=== PATIENT | male | born 1945 | race Caucasian/White ===

== ENCOUNTER 2016-07-13 14:32 | Inpatient (IN) | payer OTHER, BC ==
--- NOTE | 2016-07-13 14:45 | CPEKG ---
Heart Rate: 66 RR Interval: 909 P-R Interval: 176 QRSD Interval: 104 QT Interval: 400 QTC Interval: 420 P [place]: 52 QRS [place]: -34 T Wave [place]: 93 EKG Severity - ABNORMAL ECG - EKG Impression: SINUS RHYTHM EKG Impression: PROBABLE LEFT ATRIAL ABNORMALITY EKG Impression: LEFT AXIS DEVIATION EKG Impression: NONSPECIFIC T ABNORMALITIES, LATERAL LEADS Electronically Signed By: Mary Geller 13-Jul-2016 20:29:23
--- NOTE | 2016-07-13 15:12 | EDPHY ---
H & P Time Seen by Provider: 07/13/16 14:47 HPI/ROS: CHIEF COMPLAINT: chest pain HISTORY OF PRESENT ILLNESS: Patient is a 70-year-old male with a history of coronary artery disease, status post CABG and stent placement who presents to the emergency department with substernal chest pain. He states his pain has been off and on for the past few days. It has increased in intensity and frequency. He was sitting down when he developed chest pain today. He took an aspirin and nitroglycerin. This resolved his pain. He was told by Dr. Marcos that if his nitroglycerin results his pain he should come to the emergency department. He is chest pain-free at this time. REVIEW OF SYSTEMS: My complete review of systems is negative except as mentioned in the HPI. Past Medical/Surgical History: Includes coronary artery disease, CHF, gout, diabetes, RLS, kidney failure Past surgical history: Includes AICD placement, CABG, bilateral hip replacement bilateral knee replacement Social history: The patient does not smoke. He is here with . Smoking Status: Former smoker Physical Exam: Vitals noted GENERAL: Well-appearing, in no acute distress, alert. HEENT: Eyes normal to inspection, normal pharynx, no signs of dehydration. NECK: No thyromegaly, no lymphadenopathy, supple. RESPIRATORY: Clear to auscultation bilaterally, no rales, rhonchi or wheezing. CVS: Regular rate and rhythm, no rubs, murmurs, or gallops. ABDOMEN: Soft, nontender, nondistended, no organomegaly. BACK: Normal to inspection, no CVA tenderness. SKIN: Normal color, no rash, warm, dry. No pallor. EXTREMITIES: No pedal edema, no calf tenderness, no Homans sign or cords, no joint swelling. NEURO/PSYCH: Alert and oriented x3, normal mood and affect, normal motor sensory exam. Constitutional: Initial Vital Signs Temperature (C) 36.8 C 07/13/16 14:36 Heart Rate 73 07/13/16 14:36 Respiratory Rate 18 07/13/16 14:36 Blood Pressure 174/68 H 07/13/16 14:36 O2 Sat (%) 94 07/13/16 14:36 O2 Delivery Mode Room Air Allergies/Adverse Reactions: hydrocodone Allergy (Verified 07/13/16 14:35) Home Medications: Medication Instructions Recorded Valsartan [Diovan] 320 mg PO DAILY 03/23/13 glyBURIDE [Micronase] 2.5 mg PO DAILY 03/23/13 Aspirin EC [Aspirin EC 81 mg (*)] 81 mg PO DAILY 04/30/13 Colchicine [Colchicine (*)] 0.6 mg PO DAILY PRN 01/06/14 Multivitamins [Multivitamin (*)] 1 each PO DAILY 01/06/14 Vesta-3 Fatty Acids [Fish Oil 1000 1,000 mg PO DAILY 01/06/14 mg (*)] rOPINIRole HCL [Requip 1mg (*)] 3 mg PO QID PRN 01/06/14 Furosemide [Lasix 40 MG (*)] 40 mg PO DAILY #0 tab 02/16/14 Atorvastatin Calcium [Lipitor 20 20 mg PO HS 04/03/15 mg (*)] Omeprazole [Prilosec 20 mg] 40 mg PO DAILY 04/03/15 Tadalafil [Cialis] 10 mg PO DAILY PRN 04/03/15 metFORMIN HCL [Glucophage 500 mg 1,000 mg PO BIDMEAL 04/03/15 (*)] Carvedilol [Coreg (*)] 3.125 mg PO BIDMEAL #0 tab 04/04/15 Cholecalciferol (Vitamin D3) 2,000 unit PO DAILY 05/09/15 [Vitamin D3] Doxycycline Hyclate 100 mg PO DAILY 05/09/15 LORazepam [Ativan (*)] 0.5 mg PO DAILY PRN 05/09/15 Aspirin [Aspirin 325 mg (*)] 325 mg PO DAILY #0 tab 03/18/16 Medical Decision Making ED Course/Re-evaluation: In the emergency department I discussed possible etiologies with the patient. I answered all his questions. IV was placed. Laboratory studies and chest x- ray were ordered. EKG shows normal sinus rhythm, normal rate, left axis deviation, normal intervals. There are no ST or T-wave abnormalities. 1545: The patient has no complaints. No chest pain or shortness of breath. I discussed his laboratory results thus far. Troponin is still pending. The D- dimer is elevated at 0.77. The patient consented to CT angiogram. I rechecked the patient. No chest pain. 1635: I discussed the CT results with Dr. Antionette Mehta. No pulmonary embolus. Mild CHF. No pneumonia. Please refer the dictated report. I discussed case with the hospitalist service (Dr. Gaines). The patient will be admitted for further evaluation for his chest pain. I discussed the plan with the patient and answered all his questions. Differential Diagnosis: My differential includes but is not limited to ACS, acute NM, pneumonia, PE, dissection, aneurysm - Data Points Laboratory Results: Laboratory Results 07/13/16 14:45 07/13/16 14:45 07/13/16 14:45 WBC 7.98 10^3/uL (3.80-9.50) RBC 5.49 10^6/uL (4.40-6.38) Hgb 15.9 g/dL (13.7-17.5) Hct 48.6 % (40.0-51.0) MCV 88.5 fL (81.5-99.8) MCH 29.0 pg (27.9-34.1) MCHC 32.7 g/dL (32.4-36.7) RDW 14.9 % (11.5-15.2) Plt Count 205 10^3/uL (150-400) MPV 10.1 fL (8.7-11.7) Neut % (Auto) 68.9 % (39.3-74.2) Lymph % (Auto) 23.6 % (15.0-45.0) [place] % (Auto) 5.4 % (4.5-13.0) Eos % (Auto) 1.1 % (0.6-7.6) Baso % (Auto) 0.4 % (0.3-1.7) Nucleat RBC Rel Count 0.0 % (0.0-0.2) Absolute Neuts (auto) 5.50 10^3/uL (1.70-6.50) Absolute Lymphs (auto) 1.88 10^3/uL (1.00-3.00) Absolute Monos (auto) 0.43 10^3/uL (0.30-0.80) Absolute Eos (auto) 0.09 10^3/uL (0.03-0.40) Absolute Basos (auto) 0.03 10^3/uL (0.02-0.10) Absolute Nucleated RBC 0.00 10^3/uL (0-0.01) Immature Gran % 0.6 % (0.0-1.1) Immature Gran # 0.05 10^3/uL (0.00-0.10) D-Dimer 0.77 H ug/mLFEU (0.00-0.50) Sodium 144 mEq/L (134-144) Potassium 4.8 mEq/L (3.5-5.2) Chloride 106 mEq/L (97-110) Carbon Dioxide 27 mEq/l (22-31) Anion Gap 11 mEq/L (8-16) BUN 27 H mg/dL (7-23) Creatinine 1.3 mg/dL (0.7-1.3) Estimated GFR 54 Glucose 116 H mg/dL (70-100) Calcium 9.6 mg/dL (8.5-10.4) Total Bilirubin 0.7 mg/dL (0.1-1.4) Conjugated Bilirubin 0.7 H mg/dL (0.0-0.5) Unconjugated Bilirubin 0.0 mg/dL (0.0-1.1) AST 32 IU/L (17-59) ALT 41 IU/L (21-72) Alkaline Phosphatase 65 IU/L (38-126) Troponin I < 0.012 ng/mL (0-0.034) NT-Pro-B Natriuret Pep 625 H pg/mL (0-125) Total Protein 7.1 g/dL (6.3-8.2) Albumin 4.4 g/dL (3.5-5.0) Lipase 131.0 IU/L (23-300) Departure - Departure Disposition: [facility] Inpatient Acute Clinical Impression: Chest pain Condition: Good Referrals: Magda Major MD [Primary Care Provider] - As per Instructions
[2016-07-13 15:29] LABS: % IMMATURE GRANULYOCYTES 0.6 % (0.0-1.1); ABSOLUTE IMMATURE GRANULOCYTES 0.05 10^3/uL (0.00-0.10); ADD DIFF? NO; ADD MORPH? NO; ADD SCAN? NO; ATYPICAL LYMPHOCYTE FLAG 0 (0-99); FRAGMENT RBC FLAG 0 (0-99); HEMATOCRIT 48.6 % (40.0-51.0); HEMOGLOBIN 15.9 g/dL (13.7-17.5); LEFT SHIFT FLG 0 (0-99); LIPEMIA HEMOLYSIS FLAG 80 (0-99); MEAN CELL HEMOGLOBIN CONCENTR. 32.7 g/dL (32.4-36.7); MEAN CELL VOLUME 88.5 fL (81.5-99.8); MEAN PLATELET VOLUME 10.1 fL (8.7-11.7); PLATELET CLUMPS FLAG 10 (0-99); PLATELET COUNT 205 10^3/uL (150-400); RED BLOOD CELL COUNT 5.49 10^6/uL (4.40-6.38); RED CELL DISTRIBUTION WIDTH 14.9 % (11.5-15.2)
[2016-07-13 15:39] LABS: ALANINE AMINOTRANSFERASE 41 IU/L (21-72); ALBUMIN 4.4 g/dL (3.5-5.0); ALKALINE PHOSPHATASE 65 IU/L (38-126); ANION GAP 11 mEq/L (8-16); ASPARTATE AMINOTRANSFERASE 32 IU/L (17-59); BILIRUBIN,TOTAL 0.7 mg/dL (0.1-1.4); BILIRUBIN-CONJUGATED 0.7 mg/dL (0.0-0.5); CALCIUM 9.6 mg/dL (8.5-10.4); CARBON DIOXIDE 27 mEq/l (22-31); CHLORIDE 106 mEq/L (97-110); CREATININE 1.3 mg/dL (0.7-1.3); GLOMERULAR FILTRATION RATE 54; GLUCOSE 116 mg/dL (70-100); POTASSIUM 4.8 mEq/L (3.5-5.2); SODIUM 144 mEq/L (134-144); TOTAL PROTEIN 7.1 g/dL (6.3-8.2)
[2016-07-13 15:51] LABS: TROPONIN I < 0.012 ng/mL (0-0.034)
--- NOTE | 2016-07-13 15:52 | DX ---
PA and lateral chest. July 13, 2016. Clinical History: Chest pain Comparison Study: February 12, 2016.. Findings: The lungs are clear. No pleural disease identified. Heart size is normal. Prior median sternotomy and placement of left subclavian transvenous pacemaker/defibrillator.. Impression: Stable negative chest. Prior pacemaker/defibrillator placement.
[2016-07-13] MEDS ORDERED: IOPAMIDOL (ISOVUE 370) 100 ML BTL IV ONE ×2 (15:54→16:13)
--- NOTE | 2016-07-13 16:45 | CT ---
CT Angiogram of the Chest Clinical Indications: Chest pain. Technique: 1.25-mm thin axial images are performed from lung apex through base during intravenous co ntrast injection of 180 mL of Isovue-370. Coronal and parasagittal reformatted images are reviewed on PACS workstation. Dose reduction techniques were utilized. Comparison: May 09, 2015. Findings CT Angiogram of the Chest: There is no evidence for acute or chronic pulmonary embolic disease. Centr al pulmonary vasculature demonstrates normal contrast enhancement. No masses. CT Scan Chest: No consolidation or effusion. There is mild pulmonary edema. AICD leads are noted. No pleural effusion or pericardial effusion. Mild amount of atelectasis is present in both lung bases. Impressions: 1. Mild pulmonary edema. 2. No evidence for pulmonary embolic disease. Findings are discussed with Dr. Mary Geller.
[2016-07-13] MEDS ORDERED: ONDANSETRON 4 MG/2 ML VIAL IVP PRN (18:58)
[2016-07-13] MEDS ORDERED: ACETAMINOPHEN 325 MG TAB PO PRN (18:58)
[2016-07-13] MEDS ORDERED: hydrALAZINE 20 MG/ML VIAL IVP PRN (18:58)
[2016-07-13] MEDS ORDERED: FUROSEMIDE 40 MG/4 ML VIAL IVP ONE (18:58)
[2016-07-13] MEDS ORDERED: NITROGLYCERIN 0.4 MG BTL SL PRN (18:59)
[2016-07-13] MEDS ORDERED: D50W 25 GM/50 ML SYR IVP PRN (19:03)
--- NOTE | 2016-07-13 19:47 | GHP ---
[f rep st] HISTORY AND PHYSICAL DATE OF ADMISSION: 07/13/2016 CHIEF COMPLAINT: Chest pain. HISTORY: The patient is a 70-year-old male with a history of coronary artery disease, previous CABG, and more recently had 2 stents placed in January of 2014 to the right coronary artery and the LAD. Nathan roth has been chest pain-free since those stents were placed in 2013. Over the last few days, he has cat d recurrence of chest pain coming and going. The intensity and frequency, however, have been increas ing. Today, he had an episode of chest pain at rest. He took a nitroglycerin which relieved his lev st pain, but he subsequently came to the emergency room. He states he has a hard time a chronic chest pain that he gets from his hiatal hernia from a possible cardiac chest pain. He also has a chronic pain around his defibrillator in the left side of his chest wall and it feels like his defibrillator moves around under the skin causing some disco mfort. This chest pain does not change with exertion. It is left-sided, nonpleuritic. He has had s hortness of breath, but no lower extremity edema. He is currently chest pain-free. PAST MEDICAL HISTORY: 1. Congestive heart failure, ejection fraction of 35%. 2. Nonsustained V tac status post AICD. 3. Diabetes type 2. 4. Hypertension. 5. Coronary disease status post CABG and, more recently, stents to the right coronary artery and LAD in January 2014. 6. Plavix rapid metabolizer. 7. Obstructive sleep apnea on BiPAP plus 3 L at night. 8. Gout. 9. Chronic kidney disease, baseline creatinine 1.2 to 1.3. MEDICATIONS: Please see computer record for full detailed list. ALLERGIES: Hydrocodone. SOCIAL HISTORY: Quit smoking 30 years ago. Quit drinking 30 years ago. Does report heavy alcohol u se prior to quitting. Lives with his . REVIEW OF SYSTEMS: Complete review of systems obtained. Review of systems is negative for constitut ional, HEENT, GI, pulmonary, cardiovascular, , hematology, skin, musculoskeletal, endocrine, psych, except for positives and pertinent negatives as noted in the HPI. FAMILY HISTORY: Reviewed and noncontributory to presenting complaint. PHYSICAL EXAMINATION: GENERAL: A well-developed, well-nourished male, in no acute distress. VITAL SIGNS: Temperature is 36.0, pulse 73, blood pressure 174/68, saturating 94% on room air. EYES: Nor mal conjunctivae. Pupils equal and reactive to light. ENT: Normal ears and nose. Hearing intact. Normal lips and teeth. Oropharynx moist. NECK: Trachea midline. No thyromegaly. CHEST: Normal effort. LUNGS: Clear to auscultation bilaterally. CARDIOVASCULAR SYSTEM: Regular rhythm, no murmur , no lower extremity edema. ABDOMEN: Soft, nontender. No hepatomegaly. SKIN: Warm, dry, intact w ithout rash. MUSCULOSKELETAL: No cyanosis or clubbing. Strength 5/5 upper and lower extremities. NEUROLOGIC: Cranial nerves intact. Normal sensation to light touch. PSYCHIATRIC: Alert and orient ed x3. Normal affect. Normal judgment and insight. Normal memory. LABS: White count 7.98, hematocrit 48.6, platelets 205. Sodium 144, potassium 4.8, chloride 106, bicarb 27, BUN 27, creatinine 1.3, glucose 116. BNP is 625. Troponin is negative. Lipase is 131. D-dimer is 0.77. EKG is reviewed by me. My personal interpretation: Normal sinus rhythm. No ST-T wave changes. Chest x-ray is negative. CT angiogram of the chest is negative for pulmonary embolus, but it does show pulmonary edema. MEDICAL RECORD REVIEW: He was hospitalized here in 2013 and had stents placed 1 month apart to the r ight coronary and then to the LAD, as discussed above. ASSESSMENT AND PLAN: 1. Chest pain. Differential diagnosis is ischemia versus hiatal hernia versus local chest wall pain due to his defibrillator. He does have a significant coronary artery disease history, including a p revious coronary artery bypass graft and previous stents to the right coronary artery and left anteri or descending in 2013. Will follow serial troponins and EKGs. Will tentatively plan on stress testi ng in the morning, but this will be very much depend on how he does throughout this evening. 2. [id number] systolic congestive heart failure. Ejection fraction is 35%. Will give a oneti me IV Lasix tonight. Will recheck an echocardiogram. I suspect any pulmonary edema he may have is p robably due to his uncontrolled hypertension. 3. Hypertensive urgency. Blood pressure upon arrival to [facility] was 210/106. With his associated ches t pain and possible congestive heart failure, this is concerning. Will give a onetime dose of IV hyd ralazine and IV Lasix and monitor blood pressure closely. I suspect he has poor baseline control, as he reports his baseline systolic blood pressure is greater than 150. 4. Chronic kidney disease. He is at his baseline creatinine number. 5. Nonsustained ventricular tachycardia status post automatic internal cardioverter-defibrillator. He will be monitored. 6. Diabetes type 2. Will hold metformin. Status post IV contrast. 7. Obstructive sleep apnea. Continue BiPAP at night +3 L. CODE STATUS: Full. ADMISSION STATUS: Will admit to observation, although I think this gentleman may be relatively high- risk for needing a little longer. DVT PROPHYLAXIS: He is high risk. Will place him on subcu Lovenox. /[id number]/MODL
[2016-07-13] MEDS: INSULIN REGULAR HUMAN 100 UNIT/ML SC SCH (21:17)
[2016-07-13] MEDS: ATORVASTATIN CALCIUM 20 MG TAB PO SCH (21:18)
[2016-07-14 07:26] LABS: ANION GAP 15 mEq/L (8-16); CALCIUM 9.5 mg/dL (8.5-10.4); CARBON DIOXIDE 24 mEq/l (22-31); CHLORIDE 105 mEq/L (97-110); CHOLESTEROL 141 mg/dL (140-220); CHOLESTEROL/HDL RATIO 3.71 RATIO (1.00-4.97); CREATININE 1.2 mg/dL (0.7-1.3); GLOMERULAR FILTRATION RATE 60; GLUCOSE 114 mg/dL (70-100); HIGH DENSITY LIPOPROTEIN 38 mg/dL (40-65); LDL/HDL RATIO 1.58 RATIO (1.00-3.64); LOW DENSITY LIPOPROTEIN 60 mg/dL (80-100); NON-HIGH DENSITY LIPOPROTEIN 103 mg/dL (90-129); POTASSIUM 4.7 mEq/L (3.5-5.2); SODIUM 144 mEq/L (134-144); TRIGLYCERIDE 217 mg/dL (40-150); VERY LOW DENSITY LIPOPROTEINS 43 mg/dL (8-25)
[2016-07-14 07:36] LABS: TROPONIN I 0.018 ng/mL (0-0.034)
[2016-07-14] MEDS: INSULIN REGULAR HUMAN 100 UNIT/ML SC SCH ×4 (08:38→20:48)
--- NOTE | 2016-07-14 08:51 | CPEKG ---
Heart Rate: 66 RR Interval: 909 P-R Interval: 162 QRSD Interval: 108 QT Interval: 424 QTC Interval: 445 P [place]: 74 QRS [place]: -41 T Wave [place]: 90 EKG Severity - ABNORMAL ECG - EKG Impression: ATRIAL-PACED COMPLEXES EKG Impression: PROBABLE LEFT ATRIAL ABNORMALITY EKG Impression: BORDERLINE IVCD WITH LAD EKG Impression: INFERIOR INFARCT, OLD EKG Impression: MINIMAL ST ELEVATION, ANTERIOR LEADS EKG Impression: SIMILAR ECG FINDINGS (PACING AND ST/T WAVE CHANGES) WERE NOTED IN ECG FROM EKG Impression: 09-MAY-2015 Electronically Signed By: Benjamin Phillips 14-Jul-2016 10:03:10
[2016-07-14] MEDS ORDERED: NON-FORMULARY NEW DRUG (Valsartan [Diovan] 320 MG) PO SCH (09:00)
[2016-07-14] MEDS ORDERED: ASPIRIN 325 MG TAB PO SCH (09:00)
[2016-07-14] MEDS ORDERED: glyBURIDE 2.5 MG TAB PO SCH (09:00)
[2016-07-14] MEDS ORDERED: NON-FORMULARY NEW DRUG (Omeprazole [Prilosec 20 Mg] 40 MG) PO SCH (09:00)
[2016-07-14] MEDS: FUROSEMIDE 40 MG TAB PO SCH (09:18)
[2016-07-14] MEDS: CARVEDILOL 25 MG TAB PO SCH ×2 (09:18→19:24)
[2016-07-14] MEDS: DOXYCYCLINE HYCLATE 100 MG CAP/TAB PO SCH (09:21)
[2016-07-14] MEDS: PANTOPRAZOLE SODIUM 40 MG TAB PO SCH (09:21)
[2016-07-14] MEDS: ENOXAPARIN 40 MG/0.4 ML SYR SC SCH (09:24)
[2016-07-14] MEDS: VALSARTAN 160 MG TAB PO SCH (09:24)
[2016-07-14] MEDS ORDERED: diphenhydrAMINE 25 MG CAP PO ONE (11:02)
[2016-07-14] MEDS ORDERED: FAMOTIDINE 20 MG TAB PO ONE (11:02)
[2016-07-14] MEDS ORDERED: NS 1,000 ML IV ONE (11:02)
[2016-07-14] MEDS ORDERED: ASPIRIN EC 325 MG TAB PO ONE ×2 (11:02→17:28)
[2016-07-14] MEDS ORDERED: DIAZEPAM 5 MG TAB PO ONE (11:02)
[2016-07-14] MEDS ORDERED: LIDOCAINE 1% 30 ML SDV ONE ×2 (14:24→16:12)
[2016-07-14] MEDS ORDERED: fentaNYL 100 MCG/2 ML INJ ONE ×2 (14:25→16:25)
[2016-07-14] MEDS ORDERED: MIDAZOLAM 2 MG/2 ML VIAL ONE ×5 (14:25→17:21)
[2016-07-14] MEDS ORDERED: IOPAMIDOL (ISOVUE-370) 150 ML BTL IV ONE ×4 (14:25→16:49)
[2016-07-14] MEDS ORDERED: BIVALIRUDIN 250 MG/5 ML VIAL IV ONE ×2 (15:31→16:42)
[2016-07-14] MEDS ORDERED: NITROGLYCERIN 1,500 MCG/15 ML VIAL MISC ONE (15:34)
--- NOTE | 2016-07-14 15:48 | SUROPNOTE ---
[facility] Operative Report - Surgery Date of Procedure: 07/14/16 Indication: This patient is a 70 year old man, with known coronary disease s/p CABG and history of RCA and LAD stenting (last in 01/2014), CHF, reduced ejection fraction, nonsustained VT s/p AICD placement, diabetes, hypertension, and chronic kidney disease, presenting with one month of progressive, gradually worsening intermittent chest discomfort, which has been increasing in frequency and severity. The chest discomfort usually occurs in the afternoon. It is not particularly brought on by exertion, however the patient has not been exerting himself. The patient was initially scheduled to be seen in the office for evaluation of chest pain, but however previous to appointment experienced resting chest pain, consistent with [place] Cardiovascular class IV angina, and was subsequently seen in the emergency department. The chest pain was alleviated after nitroglycerin. He was evaluated in the emergency department and was admitted to the [facility] for further cardiac evaluation. The chest discomfort was similar to previous anginal symptoms. Stress testing was not performed secondary to rapid progression of the patient's chest pain, with now [place] Cardiovascular Class IV angina. The patient also notes that his blood pressure has been poorly controlled at home and yesterday was 210/106. Due to the patient's history of coronary disease and symptoms at rest, stress testing was not performed. Left heart catheterization indicated secondary to [place] cardiovascular class IV angina. Procedures performed: 1. Left heart catheterization with left ventricular, selective coronary angiography, and bypass graft angiography. 2. Bilateral selective renal angiography. 3. Intravascular ultrasound imaging and intracoronary stent placement x1 in the right posterior descending artery. 4. Balloon angioplasty, intravascular ultrasound imaging, and intracoronary stent x1 placement in the circumflex, with adjunctive Pronto thrombectomy (see below). Description of procedure: Description, risks, benefits and alternatives were discussed in detail. Informed consent was obtained. The patient was brought to the catheterization laboratory where a timeout was performed. The right groin was sterilely prepped and draped. 2% lidocaine utilized for local anesthetic. A 6-Par[place]ayan hemostatic sheath placed right femoral artery utilizing Modified Seldinger technique. Diagnostic coronary angiography performed with 6-Paraguayan, Urvashi left-4, BELCHER, and Urvashi right-4 catheter. Urvashi left-4 cross the aortic valve for left heart catheterization. Due to the patient's recent severe and difficult to control hypertension, a decision was made to perform selective renal angiography. The 6-[place] BELCHER catheter was also utilized for renal angiography. All catheters were passed over a 0.035 guidewire. There is a hazy eccentric lesion in the proximal right posterior descending artery, which appeared progressive compared to previous angiography. This was difficult to assess by angiography alone secondary to hazy quality. Angiomax was administered. An AL1 short tip guide catheter was utilized to engage the right coronary system. A Napier Field wire was placed in the right posterior descending artery. Ultrasound catheter was placed and intravascular ultrasound imaging was performed in the right posterior descending to assess lesion severity and reference vessel diameter. There is an eccentric calcified 80% proximal PDA stenosis confirmed by ultrasound. A 3.0mm x 28mm Synergy drug- eluding stent was chosen and carefully positioned in the proximal PDA to cover the area of severe stenosis. This was deployed to 16 atmospheres for 20 seconds. Stent balloon was inflated to 18 atmospheres. Ultrasound catheter was re-introduced and repeat intravascular ultrasound imaging was performed, demonstrating excellent result. Wire and ultrasound catheter removed. Final orthogonal angiography was performed. Further review of the films suggest that the other possible ischemic would be in the [place] circumflex. There is a critical proximal circumflex lesion and the distal vessel is likely getting the majority of flow via the saphenous vein graft to the obtuse marginal. However, there is suggestion of significant ostial obtuse marginal stenosis effecting this flow. The [place] circumflex is difficult to assess by single catheter angiography alone. We discussed options for FFR versus dual catheter angiography with ultrasound imaging. Initially, a 6 -[place]ayan EBU-3.75 guide catheter was utilized to engage the left coronary system. Napier Field wire was placed in the [place] circumflex. Ultrasound catheter was placed in the [place] circumflex, but would not cross the proximal circumflex. It is unclear if the distal circumflex is being affected by the proximal circumflex lesion, or if is receiving adequate flow from the saphenous vein graft. FFR cannot be utilized accurately for this due to competing sources of flow. Decision was made to establish dual access, in order to simultaneously perform coronary and bypass graft angiography. Due to table set up, decision was made to initially use the left groin. The left groin was sterilely prepped and draped. 2% lidocaine utilized for local anesthetic. The left femoral artery was punctured utilizing Modified Seldinger technique, however by angiography this appeared to be an unusual site for access (very low compared to the right femoral artery), and it was felt to be unsafe to attempt higher point of access. Instead, the right wrist was sterilely prepped and draped. 2% lidocaine utilized for local anesthetic. A 5/6-Paraguayan slender hemostatic sheath placed right radial artery utilizing micropuncture technique. Intraarterial verapamil was administered. A 6-[place]ayan AL1 guide catheter was passed over a J Glidewire and utilized to engage the saphenous vein graft to the circumflex. The EBU 3.75 and the AL1 were simultaneously injected with contrast for simultaneous angiography of the [place] circumflex. Dual catheter angiography demonstrated a definite critical lesion in the ostium of the obtuse marginal branch. Despite adequate ACT, thrombus formation was noted to have formed on the guide catheter- guide wire junction in the left main. Bolus of Integrilin was given. Angiomax drip was continued. A Prowater J wire was utilized and placed in the left anterior descending. Pronto catheter was inserted into the left anterior descending. The Nap[place] Field wire was removed, which appeared to have the thrombus attached to it. Further thrombectomy was performed with the Pronto catheter. Thrombectomy was successful. Angiography demonstrated complete thrombus resolution. The Napier Field and Prowater J wire were both re-introduced through the EBU 3.75 guide catheter and placed in the circumflex; one into the obtuse marginal and one into the distal vessel. The ultrasound catheter was placed over the [place] wire, however would not cross the circumflex. A 2.5mm x 20mm Emerge balloon was placed in the proximal circumflex and inflated to 14 atmospheres for 15 seconds for pre-dilation of the vessel. The Prowater J was removed and exchanged for a Samurai wire. Ultimately, the Samurai wire was successful in passing distally. The ultrasound catheter was placed over the Samurai wire and intravascular ultrasound imaging was performed in the circumflex. The Nap[place] Field wire was removed. A 4.0mm x 16mm Synergy drug-eluding stent was chosen and carefully positioned in the proximal circumflex. This stent was placed in such a way that the principle obtuse marginal branch was placed in "stent skilled nursing". This was deployed to 11 atmospheres for 15 seconds. Of note, there was significant dissection of the proximal vessel seen by angiography prior to stent deployment, which resolved after stent deployment. Ultrasound catheter was re-introduced and repeat intravascular ultrasound imaging was performed, which demonstrated full stent deployment and satisfactory result. Final orthogonal angiography was performed. Fem-Stop was applied to the left groin. Angio Seal arteriotomy repair was then performed. Arterial sheath was removed and TR band was placed. Findings: 1. Hemodynamics: Aortic pressure 115/67, mean of 89, left ventricular pressure 122/12/19 end-diastolic. There was no significant pull back gradient across the aortic valve. 2. Coronary angiography: Left main: The left main is a moderately large, moderate length bifurcating vessel with mild plaquing of less than 20%. 3. Left anterior descending: The left anterior descending gives rise to a moderately large bifurcating diagonal branch and then is totally occluded, filling from a patent BELCHER to LAD graft distally. There is a proximal stent extending into the proximal diagonal branch, which is widely patient with minimal restenosis. The mid and distal LAD are widely patent and fill via patent BELCHER graft. 4. Circumflex: The circumflex is known to be sub-totally occluded and fills via patent saphenous vein graft to the principle obtuse marginal/ramus intermedius. The circumflex then retro fills a codominant posterolateral circulation. There is a proximal circumflex stenosis of 95% by intravascular ultrasound imaging. Ultimately, we were able to determine that there is a significant stenosis at the origin of the principle OM branch, affecting flow distally. The smaller obtuse marginal branch distally contains a 90% ostial stenosis. 5. Right coronary: Large dominant vessel. Large PDA, small posterolateral circulation. There is a mid stent that is widely patent. Proximal to the stent is an eccentric calcified 30-40% stenosis. The proximal PDA contains a hazy eccentric calcified stenosis of approximately 80% by intravascular ultrasound imaging. 6. Bypass graft angiography: There were three bypass grafts. The BELCHER to LAD is widely patent. The saphenous vein graft to the circumflex is large and minimally irregular. The third graft which went to the right coronary is totally occluded. 7. Renal angiography: Single renal arteries, widely patent bilaterally. 8. Percutaneous intervention: Guided by intravascular ultrasound imaging and angiography, the 80% proximal posterior descending artery stenosis was treated with placement of a single drug-eluding stent, with excellent result confirmed by repeat ultrasound imaging. Guided by simultaneous coronary and bypass graft angiography, as well as intravascular ultrasound imaging, the 95% proximal circumflex stenosis was treated with balloon angioplasty and placement of a single drug-eluding stent, with excellent result and full stent deployment confirmed by repeat intravascular ultrasound imaging. Overall Impression: 1. Severe eccentric 80% stenosis in the proximal right posterior descending artery, treated with a single drug-eluding stent, with excellent result confirmed by angiography. 2. Severe 95% stenosis in the proximal circumflex, treated with a single drug- eluding stent, with excellent result confirmed by angiography. Complicated by thrombus formation on guide wire, successfully treated by thrombectomy and guide wire removal, with no ultimate complication. 3. Widely patent BELCHER graft to the LAD. Patent saphenous vein graft to the circumflex. Chronic total occlusion of the right coronary graft. 4. Widely patent single renal arteries bilaterally. Plan: 1. Dual anti-platelet therapy. 2. Continue aggressive risk modification and high dose statin therapy. 3. Close clinical follow up. Portions of this report were documented by a medical interpreter. I have reviewed this report and agree with the documentation. Report scribed for Dr. Eloy Kothari. Report scribed by Niurka Roth.
[2016-07-14] MEDS ORDERED: VERAPAMIL 5 MG/2 ML VIAL ONE (16:28)
[2016-07-14] MEDS ORDERED: EPTIFIBATIDE 200 MG/100 ML BOTTLE IV ONE (16:40)
[2016-07-14] MEDS ORDERED: TICAGRELOR 90 MG TAB PO ONE ×2 (17:25→17:28)
[2016-07-14] MEDS ORDERED: TEMAZEPAM 15 MG CAP PO PRN (17:28)
[2016-07-14] MEDS ORDERED: ATROPINE SULFATE 1 MG/10 ML SYR IVP PRN (17:28)
[2016-07-14] MEDS ORDERED: OXYCODONE/APAP 5/325 TAB PO PRN (17:28)
[2016-07-14] MEDS ORDERED: LORazepam 2 MG/ML INJ IVP PRN (17:28)
[2016-07-14] MEDS ORDERED: D5W 1/2 NS 1,000 ML IV SCH (17:30)
--- NOTE | 2016-07-14 18:10 | HOSPPROG ---
Hospitalist Progress Note Assessment/Plan: DIAGNOSIS: # UNSTABLE ANGINA PECTORALIS # STATUS POST INTRAVASCULAR THROMBECTOMY, AND PLACEMENT OF STENTS IN THE RIGHT CORONARY AND CIRCUMFLEX CORONARY ARTERY # CHRONIC COMPLETE OCCLUSION OF GRAFT TO RIGHT CORONARY ARTERY # RULE OUT FOR MYOCARDIAL INFARCTION PLANS: - I am waiting for the patient combative angiography suite. There are apparently plans for the patient to be admitted to the step-down unit and I am waiting for Dr. Kothari to be available to review his course so far. - Continue aggressive anti-platelet therapy, statin, other cardiac medications SUBJECTIVE: I visited with the patient before his cardiac procedure The patient was without angina through the night and not short of breath or nauseous. 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 Exam: alert oriented skin warm dry color ok resps not labored lungs clear BSs heart regular abd soft nondistended nontender, bowel sounds present limbs warm, no edema iv site ok troponins negative Objective: Vital Signs Temp Pulse Resp BP Pulse Ox 36.2 C 68 20 159/92 H 91 L 07/14/16 11:57 07/14/16 11:57 07/14/16 11:57 07/14/16 11:57 07/14/16 11:57 Laboratory Results 07/14/16 06:48 ICD10 Worksheet Patient Problems: Problems Problem Status Diagnosed Chest pain Acute Cellulitis of leg Acute Coronary artery disease Acute Diastolic CHF, chronic Acute Osteoarthritis of both knees Acute Ventricular tachycardia Acute
[2016-07-14] MEDS ORDERED: EPTIFIBATIDE 100 ML IV SCH (18:30)
[2016-07-14] MEDS: ATORVASTATIN CALCIUM 20 MG TAB PO SCH (20:48)
[2016-07-15 04:45] LABS: % IMMATURE GRANULYOCYTES 0.3 % (0.0-1.1); ABSOLUTE IMMATURE GRANULOCYTES 0.03 10^3/uL (0.00-0.10); ADD DIFF? NO; ADD MORPH? NO; ADD SCAN? NO; ATYPICAL LYMPHOCYTE FLAG 10 (0-99); FRAGMENT RBC FLAG 0 (0-99); HEMATOCRIT 42.7 % (40.0-51.0); HEMOGLOBIN 14.2 g/dL (13.7-17.5); LEFT SHIFT FLG 0 (0-99); LIPEMIA HEMOLYSIS FLAG 80 (0-99); MEAN CELL HEMOGLOBIN CONCENTR. 33.3 g/dL (32.4-36.7); MEAN CELL VOLUME 87.1 fL (81.5-99.8); MEAN PLATELET VOLUME 10.1 fL (8.7-11.7); PLATELET CLUMPS FLAG 0 (0-99); PLATELET COUNT 178 10^3/uL (150-400); RED CELL DISTRIBUTION WIDTH 14.7 % (11.5-15.2)
[2016-07-15 05:13] LABS: ALBUMIN 3.4 g/dL (3.5-5.0); ANION GAP 10 mEq/L (8-16); ASPARTATE AMINOTRANSFERASE 26 IU/L (17-59); BILIRUBIN,TOTAL 0.6 mg/dL (0.1-1.4); CALCIUM 8.9 mg/dL (8.5-10.4); CARBON DIOXIDE 24 mEq/l (22-31); CHLORIDE 105 mEq/L (97-110); CREATININE 1.2 mg/dL (0.7-1.3); GLOMERULAR FILTRATION RATE 60; GLUCOSE 140 mg/dL (70-100); LACTATE DEHYDROGENASE 332 IU/L (313-618); MAGNESIUM 2.3 mg/dL (1.6-2.3); POTASSIUM 4.4 mEq/L (3.5-5.2); SODIUM 139 mEq/L (134-144)
[2016-07-15 08:52] VITALS: TEMP 99
--- NOTE | 2016-07-15 08:55 | CPEKG ---
Heart Rate: 65 RR Interval: 923 P-R Interval: 161 QRSD Interval: 106 QT Interval: 432 QTC Interval: 450 P [place]: 51 QRS [place]: -43 T Wave [place]: 106 EKG Severity - ABNORMAL ECG - EKG Impression: ATRIAL-PACED COMPLEXES EKG Impression: PROBABLE LEFT ATRIAL ABNORMALITY EKG Impression: BORDERLINE IVCD WITH LAD EKG Impression: INFERIOR INFARCT, OLD EKG Impression: LATERAL LEADS ARE ALSO INVOLVED Electronically Signed By: Ambrose Otero 16-Jul-2016 08:16:33
[2016-07-15] MEDS ORDERED: TICAGRELOR 90 MG TAB PO SCH (09:00)
[2016-07-15] MEDS ORDERED: ASPIRIN EC 81 MG TAB PO SCH (09:00)
[2016-07-15] MEDS: INSULIN REGULAR HUMAN 100 UNIT/ML SC SCH (09:04)
[2016-07-15] MEDS: CARVEDILOL 25 MG TAB PO SCH (09:05)
[2016-07-15] MEDS: VALSARTAN 160 MG TAB PO SCH (09:05)
[2016-07-15] MEDS: ENOXAPARIN 40 MG/0.4 ML SYR SC SCH (09:05)
[2016-07-15] MEDS: PANTOPRAZOLE SODIUM 40 MG TAB PO SCH (09:05)
[2016-07-15] MEDS: DOXYCYCLINE HYCLATE 100 MG CAP/TAB PO SCH (09:06)
[2016-07-15] MEDS: FUROSEMIDE 40 MG TAB PO SCH (09:06)
--- NOTE | 2016-07-15 09:15 | SOAPPROG ---
[facility]U Progress Note Assessment/Plan: Assessment: Cardiology ([facility]) 1. CAD s/p DESx1 RPDA, DESx1 Cx this hospitalization. Procedure c/b thrombus formation on catheter wire that was removed with wire. Currently running on Integrillin iv. He is rapid Plavix metabolizer. Currently treated w/ Brilinta but change to Plavix. 2. History of FL, CABG, and multivessel stenting. 3. Ischemic cardiomyopathy 4. AICD in situ. A-paced in the 60s this am. 5. Uncontrolled HTN, now back to baseline. 6. Type 2 DM 7. Hyperlipidemia 8. AZUCENA treated w/ ASV. Plan: 1. Stop Integrillin now. 2. Stop Brilinta in favor of Plavix 75 mg/d. 3. Continue aspirin 325 mg/d. 4. Stop omeprazole in favor of pantoprazole 40 mg/d. 5. Hold metformin and resume on 07/17/15. 6. Continue all other home medications. 7. New Rxs sent electronically to [facility] pharmacy. 8. Follow up visit w/ Dr. Marcos scheduled for 07/21/15 at 1 pm. 07/15/16 09:39 07/15/16 09:47 Subjective: No complaints this am and feeling very well. Has mild hematoma at R radial puncture site and moderate hematoma at L groin puncture site. Denies any pain at left groin or in back. R groin puncture site looks good. Objective: Vital Signs Temp Pulse Resp BP Pulse Ox 37.2 C 76 16 128/64 H 94 07/15/16 08:00 07/15/16 08:00 07/15/16 08:00 07/15/16 08:00 07/15/16 08:00 Laboratory Results 07/15/16 04:20 07/15/16 04:20 07/14/16 07/15/16 07/16/16 05:59 05:59 05:59 Intake Total 2821 Output Total 950 Balance 1871 Physical Exam - Physical Exam General Appearance: WD/WN, alert, no apparent distress Respiratory: chest non-tender, lungs clear, normal breath sounds Cardiac/Chest: normal peripheral pulses, regular rate, rhythm Abdomen: normal bowel sounds, non-tender, soft Neuro/Psych: no motor/sensory deficits, alert, normal mood/affect, oriented x 3 ICD10 Worksheet Patient Problems: Problems Problem Status Diagnosed Chest pain Acute Cellulitis of leg Acute Coronary artery disease Acute Diastolic CHF, chronic Acute Osteoarthritis of both knees Acute Ventricular tachycardia Acute
[2016-07-15 10:24] VITALS: O2SAT 96
[2016-07-15 10:25] VITALS: BP 121/61; PULSE 71; RESP 18
--- NOTE | 2016-07-15 15:44 | GCON ---
[f rep st] CONSULTATION COLOR BLENDER CONSULTATION REASON FOR ADMISSION: Coronary artery disease, chest pain. HISTORY OF PRESENT ILLNESS: The patient is an extremely pleasant 70-year-old, white male with extens raúl past medical history including hypertension, noninsulin diabetes, obstructive sleep apnea, gout, chronic renal insufficiency, congestive heart failure with an ejection fraction of 35%. He also has had coronary disease with CABG stents. Also he is a Plavix rapid metabolizer. He presented with lev st pain. He was seen initially in the emergency room. Over the last few days, his chest pain has be en recurring, requiring increasing amounts of nitroglycerin. He underwent cardiac catheterization an d 2 stents were placed. Currently, he feels back to his normal, happy, healthy self. His chest pain has resolved. His appetite is good. He denies any breathlessness. PAST MEDICAL HISTORY: Significant for congestive heart failure, noninsulin diabetes, hypertension, c oronary artery disease, obstructive sleep apnea, gout, chronic renal insufficiency. PAST SURGICAL HISTORY: He has had coronary artery bypass graft, stents in 2013, and again yesterday. He also has AICD placed. ALLERGIES: Hydrocodone. SOCIAL HISTORY: Previous heavy smoker, none for 30 years. No alcohol for 30 years as well. He live s with his , has excellent family support. PHYSICAL EXAM: VITAL SIGNS: Blood pressure 128/64, pulse 76, respirations are 16, temperature 37.2, oxygen saturation 94% on 2 L. GENERAL: He is a mildly overweight but very pleasant 70-year-old, wh ite male, who is resting comfortably, in no acute distress. HEENT: Eyes JORGE, EOMI. Throat shows n o erythema or tonsillar hypertrophy. NECK: Supple. There is no cervical adenopathy. HEART: Regul ar rate and rhythm with a 2/6 systolic murmur left sternal border without radiation. LUNGS: Diminis hed breath sounds but no wheeze. ABDOMEN: Soft, nontender. Bowel sounds are present in all 4 quadr ants. EXTREMITIES: There is no clubbing, cyanosis or edema. LABORATORIES: White count 9, hemoglobin 14, hematocrit 40, platelet count 178. Sodium 139, potassiu m 4.4, chloride 105, CO2 of 24, BUN 25, creatinine 1.2. Glucose is 140. Triglycerides are 217. Cho lesterol 141. IMPRESSION: 1. Coronary disease with history of previous CABG, as well as previous stents. 2. Status post recent stenting. 3. Hypertension. 4. Noninsulin-dependent diabetes. 5. Rapid metabolizer of Plavix. 6. Obstructive sleep apnea. 7. Gout. 8. Chronic renal insufficiency. RECOMMENDATIONS: 1. The patient is doing quite well. Would recommend likely discharge home today. 2. Early ambulation. 3. Adequate nutrition. /[id number]/MODL
--- NOTE | 2016-07-16 06:17 | GDS ---
[f rep st] DISCHARGE SUMMARY DISCHARGE DIAGNOSES: 1. Unstable angina. 2. Coronary artery disease. 3. Ischemic cardiomyopathy. 4. AICD. 5. Uncontrolled hypertension. 6. Type 2 diabetes. 7. Hyperlipidemia. 8. Obstructive sleep apnea. HISTORY OF PRESENT ILLNESS: This is a 70-year-old male who presented on 07/13/2016 with complaints o f chest pain. For details of patient's initial presentation, please see the history and physical darren ed 07/13/2016. CONSULTATIVE SERVICES: 1. Cardiology, Dr. Kothari. 2. Pulmonary Critical Care. PROCEDURES: On 07/14/2016, patient had cardiac catheterization with coronary and bypass graft angiog milly as well as stent placement in the right posterior descending artery, as well as thrombectomy an d balloon angioplasty and stent placement to the circumflex. HOSPITAL COURSE: Chest pain. The patient has known coronary artery disease status post CABG. The p atient had negative troponins, was taken to the cath lab technologist, and had intervention to 2 vessels. The pat ient remained stable post procedure and is being discharged with outpatient followup with Dr. Kothari . MEDICATIONS AT THE TIME OF DISPOSITION: Please reference medication reconciliation printed on 2016. FOLLOWUP APPOINTMENTS: For this patient include with Dr. Kothari in the next 7 days for post procedu re followup. PENDING STUDIES: At the time of this dictation are none. TIME SPENT WITH PATIENT: I spent greater than 30 minutes in the planning and coordination of this corrina awad. /[id number]/MODL
[2016-07-16] MEDS ORDERED: CLOPIDOGREL BISULFATE 75 MG TAB PO SCH (09:00)
--- NOTE | 2016-08-11 12:17 | ECHO ---
[id number] + + [address] : : [place] [address] : : [phone] + + Adult Echocardiographic Report + + :Name: JR JOSÉ MIGUEL NAQVI RStudy Date: 07/14/2016 08:33 AM : : Hospital Admission Number: [id number] Location: 143: :: 1945 Gender: Male Height: 70 in : :Age: 70 yrs Race: WH Weight: 200 lb : :Reason For Study: Eval LV Fx : : BSA: 2. 1 meters2 : :History: Chest Pain, CABG, ICD : + + MMode/2D Measurements \T\ Calculations IVSd: 1.1 cm LVIDd: 6.3 cm FS: 19.4 % Ao root diam: LVPWd: 1.0 cm LVIDs: 5.1 cm EDV(Teich): 3.2 cm 203.4 ml ACS: 2.1 cm ESV(Teich): 124.1 ml EF(Teich): 39.0 % LVLd ap4: 7.3 cm SV(MOD-sp4): EDV(MOD-sp4): 54.0 ml 116.0 ml LVLs ap4: 6.8 cm ESV(MOD-sp4): 62.0 ml EF(MOD-sp4): 46.6 % Normal Measurement Values: + + :LVIDd (3.5-5.7cm) IVSd (0.6-1.1cm) LVPWd (0.6-1.1cm) Aortic Root (2.0-3.7cm)Left Atrium (1.5-4.0cm): :LV Vol(d) (76-115ml) LV Vol(s) (29-48ml) Ejec Fraction (50-65%)PV Jason (0.6- 1.2m/s) TV Jason (0.4-1.0m/s) : :MV E Jason (0.8-1.0m/s)MV A Jason (0.3-1.0m/s)LVOT Jason (0.7-1.2m/s) Asc Ao Jason ( 0.9-1.8m/s) : + + Doppler Measurements \T\ Calculations MV E max jason: Ao V2 max: LV V1 max: PA V2 max: 49.9 cm/sec 132.0 cm/sec 87.4 cm/sec 85.5 cm/sec MV A max jason: Ao max P.0 mmHg LV V1 max PG: PA max P.3 cm/sec 3.1 mmHg 2.9 mmHg MV E/A: 0.52 Left Ventricle The left ventricle is normal in size. There is normal left ventricular wall thickness. Ejection Fraction = 35-40%. There is Doppler evidence for diastolic dysfunction. There is inferior wall hypokinesis. Right Ventricle There is a pacemaker lead in the right ventricle. Atria The left atrium is mildly dilated. The Left Atrial Volume is 36 ml/m2. Right atrial size is normal. Mitral Valve There is mild mitral annular calcification. There is no mitral valve stenosis. There is mild mitral regurgitation. Tricuspid Valve The tricuspid valve is normal in structure and function. There is trace tricuspid regurgitation. Aortic Valve The aortic valve is normal in structure and function. There is no aortic stenosis. There is no aortic insufficiency. Pulmonic Valve The pulmonic valve is normal in structure and function. There is no pulmonic valvular regurgitation. Great Vessels The aortic root is normal size. Pericardium/Pleural There is no pericardial effusion. Conclusion A complete two-dimensional transthoracic echocardiogram was performed (2D, M-mode, Doppler and color flow Doppler). Ejection Fraction = 35-40%. There is Doppler evidence for diastolic dysfunction. There is inferior wall hypokinesis. There is a pacemaker lead in the right ventricle. The left atrium is mildly dilated. There is mild mitral annular calcification. There is mild mitral regurgitation. The tricuspid valve is normal in structure and function. There is trace tricuspid regurgitation. The aortic valve is normal in structure and function. There is no pericardial effusion. Final Reading Physician: Tania Sanchez signed on 08/11/2016 12:15 PM Ordering Physician: Alie Gaines Performed By: Cornell Romo, [facility]
== END 2016-07-15 11:20 | disposition home or self-care (01) | DRG 247 ==
LOC: F1N 18:18 → F2W 07-14 17:14 → F2N 07-14 17:28 → OBSVTOIN 07-14 18:06 → F2N 07-14 18:10
PROVIDERS: ADMIT Internal Medicine; ATTEND Internal Medicine
PROC: B2111ZZ Fluoroscopy of Multiple Coronary Arteries using Low Osmolar Contrast (ICD-10-PCS; principal; 2016-07-14)
PROC: B2151ZZ Fluoroscopy of Left Heart using Low Osmolar Contrast (ICD-10-PCS; principal; 2016-07-14)
PROC: 4A023N7 Measurement of Cardiac Sampling and Pressure, Left Heart, Percutaneous Approach (ICD-10-PCS; principal; 2016-07-14)
PROC: 02C03ZZ Extirpation of Matter from Coronary Artery, One Artery, Percutaneous Approach (ICD-10-PCS; principal; 2016-07-14)
PROC: 027135Z Dilation of Coronary Artery, Two Arteries with Two Drug-eluting Intraluminal Devices, Percutaneous Approach (ICD-10-PCS; principal; 2016-07-14)
PROC: B2131ZZ Fluoroscopy of Multiple Coronary Artery Bypass Grafts using Low Osmolar Contrast (ICD-10-PCS; principal; 2016-07-14)
DX: I25.110 Atherosclerotic heart disease of native coronary artery with unstable angina pectoris (principal); I25.700 Atherosclerosis of coronary artery bypass graft(s), unspecified, with unstable angina pectoris; I25.82 Chronic total occlusion of coronary artery; G47.33 Obstructive sleep apnea (adult) (pediatric); E11.22 Type 2 diabetes mellitus with diabetic chronic kidney disease; I12.9 Hypertensive chronic kidney disease with stage 1 through stage 4 chronic kidney disease, or unspecified chronic kidney disease; N18.9 Chronic kidney disease, unspecified; I47.2 Ventricular tachycardia; Z95.5 Presence of coronary angioplasty implant and graft; Z95.1 Presence of aortocoronary bypass graft; I25.2 Old myocardial infarction; Z87.891 Personal history of nicotine dependence; Z95.810 Presence of automatic (implantable) cardiac defibrillator
CPT/HCPCS: C1725; C1753; C1757; C1760; C1769; C1874; C1887; C9600; C9607; G0378; J0583; J1327; J1644; J1650; J1815; J2250; J3010; Q9967

== ENCOUNTER → 2017-02-18 | Outpatient (CLI) | payer OTHER, BC | LOC: BMCIMAGING 08:41 | PROVIDERS: ATTEND Orthopaedic Surgery | DX: M25.551 Pain in right hip (principal); Z96.643 Presence of artificial hip joint, bilateral ==

== ENCOUNTER 2017-04-08 10:28 | Emergency (ER) | payer OTHER, BC ==
--- NOTE | 2017-04-08 11:01 | CPEKG ---
Heart Rate: 69 RR Interval: 870 P-R Interval: 172 QRSD Interval: 102 QT Interval: 408 QTC Interval: 437 P [place]: 45 QRS [place]: -38 T Wave [place]: 86 EKG Severity - ABNORMAL ECG - EKG Impression: SINUS RHYTHM EKG Impression: LEFT ATRIAL ABNORMALITY EKG Impression: INFERIOR INFARCT, OLD Electronically Signed By: Isabella Rivera 08-Apr-2017 15:24:41
[2017-04-08] MEDS ORDERED: NS 500 ML IV ONE (11:13)
[2017-04-08 11:27] LABS: % IMMATURE GRANULYOCYTES 0.2 % (0.0-1.1); ABSOLUTE IMMATURE GRANULOCYTES 0.01 10^3/uL (0.00-0.10); ADD DIFF? NO; ADD MORPH? NO; ADD SCAN? NO; ATYPICAL LYMPHOCYTE FLAG 0 (0-99); FRAGMENT RBC FLAG 0 (0-99); HEMATOCRIT 45.5 % (40.0-51.0); HEMOGLOBIN 15.5 g/dL (13.7-17.5); LEFT SHIFT FLG 0 (0-99); LIPEMIA HEMOLYSIS FLAG 90 (0-99); MEAN CELL HEMOGLOBIN 30.3 pg (27.9-34.1); MEAN CELL HEMOGLOBIN CONCENTR. 34.1 g/dL (32.4-36.7); MEAN CELL VOLUME 88.9 fL (81.5-99.8); MEAN PLATELET VOLUME 10.2 fL (8.7-11.7); PLATELET CLUMPS FLAG 0 (0-99); PLATELET COUNT 170 10^3/uL (150-400); RED BLOOD CELL COUNT 5.12 10^6/uL (4.40-6.38); RED CELL DISTRIBUTION WIDTH 15.8 % (11.5-15.2)
[2017-04-08 11:33] LABS: ANION GAP 13 mEq/L (8-16); CALCIUM 9.6 mg/dL (8.5-10.4); CARBON DIOXIDE 22 mEq/l (22-31); CHLORIDE 105 mEq/L (97-110); CREATININE 1.1 mg/dL (0.7-1.3); GLOMERULAR FILTRATION RATE > 60; GLUCOSE 178 mg/dL (70-100); POTASSIUM 4.7 mEq/L (3.5-5.2); SODIUM 140 mEq/L (134-144)
[2017-04-08 11:44] LABS: CREATINE KINASE-MB FRACTION 2.81 ng/mL (0.00-3.19); INR 0.98 (0.83-1.16); PROTIME(PATIENT) 12.9 SEC (12.0-15.0); TROPONIN I < 0.012 ng/mL (0.000-0.034)
[2017-04-08 11:45] LABS: APTT 24.8 SEC (23.0-38.0)
--- NOTE | 2017-04-08 13:26 | EDPHY ---
H & P Time Seen by Provider: 04/08/17 11:12 HPI/ROS: HPI Shocks from pacemaker defibrillator. 71-year-old male by private vehicle with his . This patient has a [employer]otronik pacemaker defibrillator. He reports feeling a needle like shock intermittently just above the area of his pacemaker left upper chest wall ongoing for a couple of weeks but more frequent today. He denies any persistent chest pain. He describes these episodes as very brief and less than a second. He reports 3-4 episodes like this today. 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 Yuriy Marcos. He tried to get in to see Dr. Marcos but was unable to until mid April. He also states that he has a history of intermittent PVCs. ROS: Constitutional: No fever, no chills. No weakness. Eyes: No discharge. No changes in vision. ENT: No sore throat. No nasal congestion or rhinorrhea. Respiratory: No cough. No shortness of breath. Cardiac: As above. Gastrointestinal: No abdominal pain, no vomiting, no diarrhea. Genitourinary: No hematuria. No dysuria or increased frequency with urination. Musculoskeletal: No back pain. No neck pain. No myalgias or arthralgias. Skin: No rashes. Neurological: No headache. No focal weakness or altered sensation. Past medical history: CABG with coronary artery disease and stents placed, CHF , gout, type 2 diabetes, pacemaker defibrillator, orthopedic surgeries, renal insufficiency. Social history: Here with his . No alcohol. Nonsmoker. Physical Exam: General Appearance: Alert, no distress. This patient is responding to questions appropriately and in full sentences. This patient appears well- hydrated and well-nourished. Eyes: Pupils equal and round no pallor or injection. No lid edema, erythema or injection. Respiratory: There are no retractions, lungs are clear to auscultation with good air movement bilaterally. Cardiovascular: Regular rate and rhythm. Heart sounds distant. No murmur appreciated. Left upper chest wall pacemaker site is clean, dry and intact. No erythema, no edema, no ecchymosis. No tenderness on palpation of this area. Neurological: Motor sensory function is grossly intact. Cranial nerves are normal. Gait is normal. Skin: Warm and dry, no rashes. Musculoskeletal: Neck is supple and nontender. Extremities are symmetrical. All joints range without pain or impingement. Psychiatric: No agitation. No depression. Database: EKG: EKG time is 11:00 a.m.; EKG shows a narrow complex normal sinus rhythm with a ventricular rate of 69. The CA, QRS, QT intervals are within normal limits. There are no ST-T wave changes indicative of ischemic or injury pattern. No evidence of right heart strain. Interpreted by me. Imaging: Procedures: Emergency department course: Patient is moderately hypertensive. Vital signs reviewed. Vital signs otherwise normal. IV was placed was placed on a quality assurance monitor. [employer] team consulted for pacemaker interrogation. Pacemaker interrogation revealed no malfunction. The patient has not been shocked. His pacemaker was adjusted slightly to a low end heart rate threshold of 65 versus 60. 2:20 p.m., the patient has been asymptomatic throughout his emergency department course. He has not had any chest pain. His presentation is not consistent with acute coronary syndrome, pulmonary embolism, aortic dissection. His workup in the emergency department has been reassuring. He does not want to be admitted for observation. Plan will be to have him follow up with his bottle packing machine cleaner, Dr. Yuriy Marcos tomorrow for re-evaluation. He is in agreement with this plan. I spoke to the nurse of Dr. Marcos, nurse Ambrose Ferris. They will see him tomorrow on follow-up. Return to emergency department precautions discussed with the patient. All of his questions were answered. The patient was discharged in good condition with his . Differential Diagnosis: The differential diagnosis on this patient includes but is not limited to evaluate for pacemaker dysfunction. Acute coronary syndrome, pacemaker dysfunction, aortic dissection, pulmonary embolism, arrhythmia unlikely. This represents a partial list of diagnoses considered. These considerations are based on history, physical exam, past history, reassessment and diagnostic testing. Smoking Status: Former smoker Constitutional: Initial Vital Signs Temperature (C) 36.4 C 04/08/17 10:30 Heart Rate 68 04/08/17 10:30 Respiratory Rate 18 04/08/17 10:30 Blood Pressure 179/85 H 04/08/17 10:30 O2 Sat (%) 95 04/08/17 10:30 O2 Delivery Mode Room Air Allergies/Adverse Reactions: hydrocodone Allergy (Intermediate, Verified 04/08/17 10:36) "makes me crazy" Home Medications: Medication Instructions Recorded Aspirin EC [Aspirin EC 81 mg (*)] 81 mg PO DAILY 04/08/17 Atorvastatin Calcium [Lipitor 20 20 mg PO DAILY 04/08/17 mg (*)] Carvedilol [Coreg (*)] 12.5 mg PO BIDMEAL 04/08/17 Clopidogrel Bisulfate [Plavix (*)] 75 mg PO DAILY 04/08/17 Colchicine [Colchicine (*)] 0.6 mg PO 04/08/17 Doxycycline Hyclate [Vibramycin 100 mg PO 04/08/17 100 MG (*)] LORazepam [Ativan (*)] 0.5 mg PO 04/08/17 Lasix 40 MG (*) 04/08/17 Metformin HCl [Metformin 1000 mg] 1,000 mg PO 04/08/17 Valsartan [Diovan] 320 mg PO 04/08/17 glyBURIDE [Glyburide] 2.5 mg PO 04/08/17 rOPINIRole HCL [Requip 2mg (*)] 3 mg PO 04/08/17 Medical Decision Making - Data Points Laboratory Results: Laboratory Results 04/08/17 11:20 04/08/17 11:20 Medications Given: Discontinued Medications Sodium Chloride (Ns) 500 mls @ 1,000 mls/hr IV EDNOW ONE PRN Reason: Protocol Stop: 04/08/17 11:42 Last Admin: 04/08/17 11:29 Dose: 500 mls Departure - Departure Disposition: Home, Routine, Self-Care Clinical Impression: Evaluate pacemaker, Pacemaker syndrome, Chest discomfort Condition: Good Instructions: Chest Pain (ED) Additional Instructions: Read and follow provided instructions. Follow-up with Dr. Yuriy Marcos is a office tomorrow as discussed. Call his office this this afternoon for appointment time. Return to the emergency department for worsening symptoms, chest pain, palpitations, shortness of breath or other serious concerns. Referrals: Tyrell Marcos MD [Medical Doctor] - As per Instructions
[2017-04-08 14:40] VITALS: BP 170/126; PULSE 73; RESP 18; TEMP 97.9; O2SAT 93
== END 2017-04-08 14:40 | disposition home or self-care (01) ==
DX: R07.89 Other chest pain (principal); I25.810 Atherosclerosis of coronary artery bypass graft(s) without angina pectoris; I50.9 Heart failure, unspecified; E11.9 Type 2 diabetes mellitus without complications; E86.9 Volume depletion, unspecified; Z79.82 Long term (current) use of aspirin; Z95.0 Presence of cardiac pacemaker; Z87.891 Personal history of nicotine dependence; Z79.84 Long term (current) use of oral hypoglycemic drugs

== ENCOUNTER → 2017-05-27 | Outpatient (CLI) | payer OTHER, BC | LOC: BMCIMAGING 08:19 | PROVIDERS: ATTEND Podiatrist Foot & Ankle Surgery | DX: M20.12 Hallux valgus (acquired), left foot (principal) ==

== ENCOUNTER 2017-06-11 06:50 | Day surgery (SDC) | payer OTHER, BC ==
[2017-06-11] MEDS ORDERED: LR 1,000 ML IV SCH (07:22)
[2017-06-11] MEDS ORDERED: ceFAZolin 2 GM/SWFI 2 GM/20 ML SYR IVP ONE (07:22)
[2017-06-11] MEDS ORDERED: LIDOCAINE 1% 2 ML INJ ID PRN (07:29)
[2017-06-11 08:19] VITALS: RESP 18
[2017-06-11] MEDS ORDERED: BACITRACIN 50,000 UNITS/10 ML SYR IRR ONE (08:21)
[2017-06-11] MEDS ORDERED: BUPIVACAINE 0.5% 30 ML SDV ONE (08:21)
[2017-06-11] MEDS ORDERED: POLYMYXIN B SULFATE 500,000 UNIT/10 ML SYR IRR ONE (08:21)
--- NOTE | 2017-06-11 09:34 | PDHPUP ---
History & Physical Update H&P update statement: This history and physical update is based on an assessment of the patient which was completed after admission or registration (within 24 hours), but prior to the surgery/procedure. H&P update: H&P reviewed & patient examined, no change in patient's condition since H&P completed
[2017-06-11] MEDS ORDERED: MIDAZOLAM 2 MG/2 ML VIAL ONE (09:44)
[2017-06-11] MEDS ORDERED: fentaNYL 100 MCG/2 ML INJ ONE (10:00)
[2017-06-11] MEDS ORDERED: PROPOFOL 200 MG/20 ML VIAL ONE (10:00)
[2017-06-11] MEDS ORDERED: MIDAZOLAM 2 MG/2 ML VIAL IVP ONE (10:31)
[2017-06-11] MEDS ORDERED: fentaNYL 100 MCG/2 ML INJ IVP PRN (10:32)
[2017-06-11] MEDS ORDERED: NALOXONE HCL 0.4 MG/ML INJ IVP PRN (10:32)
[2017-06-11] MEDS ORDERED: ONDANSETRON 4 MG/2 ML VIAL IVP PRN (10:32)
--- NOTE | 2017-06-11 11:04 | POSTANESTH ---
Post Anesthetic Evaluation Cardiovascular Status: Normal, Stable Respiratory Status: Normal, Stable Level of Consciousness/Mental Status: Can Participate in Eval Pain Control: Adequate, Prn Tx Ordered Nausea/Vomiting Control: Adequate, Prn Tx Ordered Complications Possibly Related to Anesthesia: None Noted
[2017-06-11 12:39] VITALS: BP 141/88; PULSE 64; TEMP 97.7
[2017-06-11 12:51] VITALS: O2SAT 95
--- NOTE | 2017-06-12 13:44 | GOP ---
[f rep st] OPERATIVE REPORT DATE OF OPERATION: 06/11/2017 SURGEON: Bobby Durand DPM ENVIRONMENTAL SERVICES MANAGER: None. ANESTHESIA: Local with monitored anesthesia care. PREOPERATIVE DIAGNOSIS: 1. Gouty tophus mass, left foot. 2. Hallux abductovalgus, left foot. POSTOPERATIVE DIAGNOSIS: 1. Gouty tophus mass, left foot. 2. 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 3. Hallux abductovalgus, left foot. PROCEDURE PERFORMED: 1. Modified Lim bunionectomy. 2. Excision of the gouty mass, left foot. FINDINGS: SPECIMENS: Gouty tophus sent for pathologic specimen. ESTIMATED BLOOD LOSS: 10 cc. INDICATIONS: The patient is a 71-year-old gentleman with a history of coronary artery disease, stent placement, as well as pacemaker placement. The patient is also anticoagulated with both aspirin and Plavix. The patient presented to my office with a painful mass measuring roughly 2-3 cm on the dors al medial aspect of the patient's left 1st metatarsophalangeal joint. 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 The patient understands the risks, benefits, and procedures pres ented to him today and wishes to proceed with the procedure offered. DESCRIPTION OF PROCEDURE: Under mild sedation, the patient was brought into the operating room, plac ed on the operating table in the supine position. Following further IV sedation, a regional block of 30 cc of 0.5% Marcaine plain was infiltrated about the patient's left forefoot. The foot was then s crubbed, prepped, and draped in the usual aseptic manner. A sterile pneumatic tourniquet was then pl aced about the patient's well-padded supramalleolar area of the left lower extremity. An Esmarch ban dage was utilized to exsanguinate the patient's left foot and the tourniquet was inflated to 300 mmHg . Attention was then directed to the area overlying the dorsal medial aspect of the patient's left 1st metatarsophalangeal joint where a 6 cm with 2 semi elliptical 6 cm incisions were made creating an el lipse with the tophaceous mass in the center. This ellipse of skin was then resected completely and passed from the operative field. The incision was deepened via sharp and blunt dissection, care bein g taken to identify and retract all vital neural and vascular structures. All bleeders were ligated and cauterized as necessary. The great majority, the bulk of, the tophaceous mass was resected and p assed from the operative field in a dry specimen cup and sent for pathologic specimen. The wound was then flushed with copious amounts of sterile normal saline. Then, the periosteal and capsular tissu e which was markedly insulted by the large mass, was completed in line with the skin incision, thus e xposing the head of the 1st metatarsal as well as the base of the proximal phalanx of the left foot. The head of the proximal phalanx was almost completely denuded of cartilage and the subchondral bone was present. At this time, the modified Lim bunionectomy was completed with removing of the med ial bone shelf with a sagittal saw. This eminence was passed from the operative field. Any rough ed ges were then smoothed out with a rongeur. The wound was then again flushed with copious amounts of sterile normal saline and the wound was closed. A medial capsulorrhaphy of the 1st metatarsophalange al joint capsule was performed, thus further correcting the hallux position. The subcutaneous tissues were closed with a 3-0 Monocryl. The skin was closed with an interrupted horizontal mattress techni que. The wound was then dressed with Xeroform and a sterile compressive dressing consisting of 4x4s and an ABD pad. This was wrapped with a Sammie. A compressive Vikram bandage was then applied and the t ourniquet was dropped and a prompt hyperemic response was noted to all digits of the left foot. The bandage did seem to be causing appropriate hemostasis with the patient's significant anticoagulation. The patient tolerated the procedure and anesthesia well. He was transferred to the recovery room w ith vital signs stable and vascular status intact to all digits of left foot. Following postoperativ e monitoring, the patient will be discharged home with the following written and oral postop instruct ion 1. Keep dressing clean, dry, and intact. 2. Ice and elevate as instructed. 3. Use caution while taking pain medication. 4. All followup questions and concerns should be directed toward [facility] e[facility] at [phone]. HEMOSTASIS: Pneumatic ankle tourniquet 40 minutes at 300 mmHg. COMPLICATIONS: None. /[id number]/MODL
== END 2017-06-11 12:50 | disposition home or self-care (01) ==
LOC: FSGY 06:50
PROVIDERS: ATTEND Podiatrist Foot & Ankle Surgery
DX: M1A.9XX1 Chronic gout, unspecified, with tophus (tophi) (principal); M19.072 Primary osteoarthritis, left ankle and foot; M20.12 Hallux valgus (acquired), left foot; I25.10 Atherosclerotic heart disease of native coronary artery without angina pectoris; G47.33 Obstructive sleep apnea (adult) (pediatric); I27.20 Pulmonary hypertension, unspecified; R60.9 Edema, unspecified; E11.9 Type 2 diabetes mellitus without complications; I73.9 Peripheral vascular disease, unspecified; G25.81 Restless legs syndrome; F32.9 Major depressive disorder, single episode, unspecified; E78.5 Hyperlipidemia, unspecified; I25.5 Ischemic cardiomyopathy; I10 Essential (primary) hypertension; Z79.02 Long term (current) use of antithrombotics/antiplatelets; Z79.82 Long term (current) use of aspirin; Z95.810 Presence of automatic (implantable) cardiac defibrillator; Z95.5 Presence of coronary angioplasty implant and graft; Z96.642 Presence of left artificial hip joint; Z95.1 Presence of aortocoronary bypass graft; Z99.89 Dependence on other enabling machines and devices
CPT/HCPCS: J0690; J2250; J2704; J3010

== ENCOUNTER 2017-12-08 09:39 | Emergency (ER) | payer OTHER, BC ==
--- NOTE | 2017-12-08 09:53 | CPEKG ---
Heart Rate: 76 RR Interval: 789 P-R Interval: 192 QRSD Interval: 104 QT Interval: 376 QTC Interval: 423 P [place]: 38 QRS [place]: -27 T Wave [place]: 80 EKG Severity - BORDERLINE ECG - EKG Impression: SINUS RHYTHM EKG Impression: PROBABLE LEFT ATRIAL ABNORMALITY EKG Impression: BORDERLINE LEFT AXIS DEVIATION Electronically Signed By: Rudi Sanabria 09-Dec-2017 16:35:26
--- NOTE | 2017-12-08 09:58 | EDPHY ---
General Time Seen by Provider: 12/08/17 09:47 Narrative: CHIEF COMPLAINT: Chest pain, weakness HISTORY OF PRESENT ILLNESS: Patient presents with spouse at bedside. They report chest pain of 3 days duration weakness of 10 days duration. The chest pain is left-sided and just adjacent to his defibrillator site. He says it feels like a constant ache. It has been present for 3 days. Does not radiate. It is not exertional. Not associated with shortness of breath or diaphoresis. He has previous history of coronary artery disease status post CABG and stent placement of the graft vessels. His 2nd complaint is weakness of approximately 10 days. 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 He has no urinary complaints. No headache, neck pain, fever, chills, abdominal pain or rash. No other associated complaints or modifying factors. REVIEW OF SYSTEMS: Ten systems reviewed and are negative unless otherwise noted in the HPI PCP: Dr. Major SPECIALISTS: Dr. Marcos and Dr. Sanabria, cardiology Dr. Rowan, ophthalmology Service Superintendent PAST MEDICAL HISTORY: Coronary artery disease, COPD, gout, type 2 diabetes, osteoarthritis, sleep apnea. Questionable CHF diagnosis [place] Heart Score: PAST SURGICAL HISTORY: No recent surgeries. Status post CABG and cardiac stent 2-3 years ago. Bilateral hip TKA pacemaker defibrillator implantation 2014 SOCIAL HISTORY: Quit smoking 35 years ago. No alcohol or drug use. Lives here independently with his spouse. FAMILY HISTORY: Noncontributory EXAMINATION General Appearance: Alert, no distress. Well-developed well-nourished Head: normocephalic, atraumatic Eyes: Pupils equal and round, no conjunctival pallor or injection ENT, Mouth: Mucous membranes moist. Airway widely patent Neck: Normal inspection, supple, non-tender Respiratory: Mild rhonchi. No wheezing or crackles. No diminishment. Cardiovascular: Regular rate and rhythm. No murmur. Palpable implanted cardiac device with well-healed surgical incision without any erythema, dehiscence or abscess. Gastrointestinal: Obese Abdomen is soft and nontender Back: non-tender, no bony abnormalities Neurological: A&O, nonfocal, normal gait Skin: Warm and dry, no rash. Multiple areas of ecchymosis. No cellulitis appreciated Extremities: Nontender. Mild symmetric pedal edema. Nonpitting Psychiatric: Mood and affect normal DIFFERENTIAL DIAGNOSES: Including but not limited to ACS, PE, pneumonia, weakness, dehydration, CHF MDM: 9:50 a.m. Chest pain of 3 days duration with ongoing weakness of the past 10 days. The weakness is attributed to interferon at eyedrops by the spouse inpatient. The chest pain is mild and achy. Nonexertional. No radiating. Patient does have significant cardiac history, EKG was obtained immediately. No signs of ischemia on this. We will proceed with cardiac workup and he will be on continues cardiac monitoring. Vital signs are within normal limits. He has taken his full 325 mg aspirin prior to arrival. 10:40 a.m. Troponin is negative. CBC unremarkable. BNP is slightly elevated. Coagulation studies are pending. Chest x-ray is unremarkable for any acute findings. Case discussed with Dr. Sierra. He recommends cardiology consultation. 11:05 a.m. Case discussed with the on-call product development specialist Dr. Ramirez. He has reviewed the case with me. He feels that the patient is stable for discharge home with outpatient stress test this week. He also would be happy to consult the patient if the patient would like to stay in the hospital for evaluation and observation. I have re-evaluated the patient and offered and discussed all 3 options. This includes admission to the hospital for observation and stress test tomorrow, Cardiology evaluation in the emergency department and discharged home with stress test later this week. Both the patient and the spouse would like to go home. They are comfortable with that decision and have no reservations regarding this. I do feel this is reasonable at this time with a sensitive troponin that is negative. We discussed discharge home with him contacting his product development specialist today for outpatient follow-up and stress test. We discussed ED precautions for any return of pain, exertional pain, radiating pain , diaphoresis or shortness of breath. Both the patient's spouse are comfortable this plan and agree through shared decision making that they would like to go home. He will be discharged home stable condition. SUPERVISION: Patient was independently examined, but I discussed the case with my secondary supervising physician Dr. Sierra - Diagnostics EKG: I reviewed patient's EKG. See [employer] system for interpretation EKG Interpretation: Dr. Sierra. Imaging: I viewed and interpreted images myself - History History Review: I reviewed the patient's medical records, I obtained additional history from the patient's family Smoking Status: Former smoker Differential Diagnosis: as documented - Objective Vital Signs: Initial Vital Signs Temperature (C) 97.7 F 12/08/17 09:43 Heart Rate 83 12/08/17 09:43 Respiratory Rate 18 12/08/17 09:43 Blood Pressure 140/76 H 12/08/17 09:43 O2 Sat (%) 93 12/08/17 09:43 O2 Delivery Mode Room Air Allergies/Adverse Reactions: hydrocodone Allergy (Intermediate, Verified 12/08/17 09:41) "makes me crazy" Home Medications: Medication Instructions Recorded Aspirin EC [Aspirin EC 81 mg (*)] 81 mg PO DAILY06 04/08/17 Atorvastatin Calcium [Lipitor 20 20 mg PO HS 04/08/17 mg (*)] Carvedilol [Coreg (*)] 12.5 mg PO BIDMEAL 04/08/17 Colchicine [Colchicine (*)] 0.6 mg PO DAILY06 04/08/17 Doxycycline Hyclate [Vibramycin 100 mg PO DAILY06 04/08/17 100 MG (*)] LORazepam [Ativan (*)] 0.5 mg PO DAILY06 04/08/17 Lasix 40 MG (*) 20 mg PO DAILY06 04/08/17 Metformin HCl [Metformin 1000 mg] 1,000 mg PO BID 04/08/17 Valsartan [Diovan] 320 mg PO DAILY06 04/08/17 glyBURIDE [Glyburide] 2.5 mg PO DAILY06 04/08/17 rOPINIRole HCL [Requip 2mg (*)] 3 mg PO QID 04/08/17 Herbal Drugs DAILY 06/09/17 Protonix DAILY06 06/09/17 Laboratory Results: Laboratory Results 12/08/17 09:50 12/08/17 09:50 Point of Care Test Results: Chemistry 12/08/17 10:00 POC Troponin I 0.01 ng/mL ng/mL (0.00-0.08) Departure - Departure Disposition: Home, Routine, Self-Care Clinical Impression: Chest pain Qualifiers: Chest pain type: unspecified Qualified Code(s): R07.9 - Chest pain, unspecified Condition: Good Instructions: Chest Pain (ED) Additional Instructions: 1. Contact your product development specialist today for stress test within the next 24-48 hours 2. Return to this emergency department for any exertional pain, radiating pain, shortness of breath or increasing weakness, or if you change her mind regarding being discharged home Referrals: Tyrell Marcos MD [Medical Doctor] - As per Instructions Dixon Rowan MD [Medical Doctor] - As per Instructions
[2017-12-08 10:13] LABS: PLATELET COUNT 193 10^3/uL (150-400)
[2017-12-08 10:56] LABS: INR 1.01 (0.83-1.16); PROTIME(PATIENT) 13.5 SEC (12.0-15.0)
[2017-12-08 11:20] VITALS: BP 126/75
== END 2017-12-08 11:21 | disposition home or self-care (01) ==
DX: R07.9 Chest pain, unspecified (principal); J44.9 Chronic obstructive pulmonary disease, unspecified; I25.810 Atherosclerosis of coronary artery bypass graft(s) without angina pectoris; E11.9 Type 2 diabetes mellitus without complications; Z79.82 Long term (current) use of aspirin; Z79.84 Long term (current) use of oral hypoglycemic drugs; Z87.891 Personal history of nicotine dependence; Z95.0 Presence of cardiac pacemaker; Z95.5 Presence of coronary angioplasty implant and graft
CPT/HCPCS: 84484-PO

== ENCOUNTER → 2017-12-16 | Outpatient (CLI) | payer OTHER, BC | LOC: BHFA 09:30 | PROVIDERS: ATTEND Internal Medicine Cardiovascular Disease | DX: R07.9 Chest pain, unspecified (principal) | CPT/HCPCS: 78452; 93017; A9500; J2785 ==

== ENCOUNTER → 2018-03-12 | Outpatient (CLI) | payer OTHER, BC | LOC: BMCIMAGING 15:47 | PROVIDERS: ATTEND Orthopaedic Surgery Hand Surgery | DX: M18.0 Bilateral primary osteoarthritis of first carpometacarpal joints (principal); M24.811 Other specific joint derangements of right shoulder, not elsewhere classified; M24.812 Other specific joint derangements of left shoulder, not elsewhere classified ==

== ENCOUNTER → 2018-10-01 | Outpatient (CLI) | payer OTHER, BC | LOC: BMCIMAGING 12:30 | PROVIDERS: ATTEND Family Medicine | DX: R05 Cough (principal); Z95.0 Presence of cardiac pacemaker ==

== ENCOUNTER → 2018-10-20 | Outpatient (CLI) | payer OTHER, BC | DX: I50.22 Chronic systolic (congestive) heart failure (principal) ==

== ENCOUNTER 2018-11-03 07:25 | Day surgery (SDC) | payer OTHER, BC ==
[2018-11-03] MEDS ORDERED: FAMOTIDINE 20 MG TAB PO ONE (07:30)
[2018-11-03] MEDS ORDERED: DIAZEPAM 5 MG TAB PO ONE (07:30)
[2018-11-03] MEDS ORDERED: ASPIRIN EC 325 MG TAB PO ONE ×2 (07:30→07:41)
[2018-11-03] MEDS ORDERED: NS 1,000 ML IV ONE (07:30)
[2018-11-03] MEDS ORDERED: diphenhydrAMINE 25 MG CAP PO ONE ×2 (07:30→07:41)
[2018-11-03] MEDS ORDERED: DIAZEPAM 5 MG TAB ONE (07:41)
[2018-11-03] MEDS ORDERED: FAMOTIDINE 20 MG TAB ONE (07:41)
[2018-11-03 08:11] LABS: PLATELET COUNT 159 10^3/uL (150-400)
[2018-11-03 08:18] LABS: INR 1.02 (0.83-1.16)
--- NOTE | 2018-11-03 09:47 | PDHPUP ---
History & Physical Update H&P update statement: This history and physical update is based on an assessment of the patient which was completed after admission or registration (within 24 hours), but prior to the surgery/procedure.Pt with sob, [place] and decline in LVEF in the setting of known CAD. Risk and benefits discussed in detail. Pt agreeable to pursue. Consents signed. Labs reviewed. H&P update: no change in patient's condition since H&P completed
--- NOTE | 2018-11-03 09:48 | PDPROPOC ---
Sedation Plan of Care Sedation Plan of Care: mental status noted, patient educated of risks, benefits , alternatives, patient can tolerate sedation ASA Classification: ASA 2 Planned drugs: fentanyl, midazolam Mallampati Score: Class 2 Mallampati Reference Image:
[2018-11-03] MEDS ORDERED: LIDOCAINE 1% 300 MG/30 ML SDV ONE (11:12)
[2018-11-03] MEDS ORDERED: fentaNYL 100 MCG/2 ML INJ ONE (11:13)
[2018-11-03] MEDS ORDERED: MIDAZOLAM 2 MG/2 ML VIAL ONE (11:13)
--- NOTE | 2018-11-03 13:08 | CPIP ---
[f rep st] INVASIVE CARDIAC PROCEDURE DATE OF PROCEDURE: 11/03/2018 PROCEDURE PERFORMED: Diagnostic left heart catheterization. INDICATION FOR PROCEDURE: Patient is a pleasant 72-year-old gentleman with a known history of rajan ry artery disease with previous 3-vessel CABG and most recently with multiple percutaneous coronary i ntervention procedure in June of 2016 who has had several-month history of increasing shortness of breath and dyspnea on exertion with known decline in ejection fraction to 30%. Previous EF was 40% to 45%. In the setting of known history of coronary artery disease with multiple PCI and 3-vessel CABG with s ymptoms of dyspnea and decline in EF, decision was made to pursue left heart catheterization. PROCEDURE: After informed consent was obtained for left heart catheterization and possible percutane ous coronary intervention, as well as sedation, patient was brought to the cardiac catheterization la b where he was prepped and draped in a sterile fashion. Using 1% lidocaine, the right groin was anes thetized. Using the micropuncture technique and modified Seldinger technique, 6-Albanian catheter was placed into the right common femoral artery without complications. JL4 catheter was used to take matias ges of the left coronary anatomy in multiple projections. JL4 catheter was exchanged over guidewire for JR4 catheter. JR4 catheter was used to take images of the right coronary anatomy in multiple pro jections. JR4 catheter was then used to cannulate the saphenous vein graft to the obtuse marginal br anch in multiple views. JR4 catheter was then used to cannulate subclavian vessel. Wire was placed up the subclavian and was exchanged over guidewire for the BELCHER catheter. BELCHER catheter was used to take images of the left coronary anatomy in multiple projections. BELCHER catheter was exchanged over g uidewire for angled pigtail catheter. Angled pigtail catheter was used to cross the aortic valve. L VEDP was assessed. FINDINGS: Left main normal size and caliber. Bifurcates into left anterior descending and left circ umflex coronary artery. There is no evidence of coronary disease in the left main. Left anterior descending demonstrates patent stents to the proximal and mid LAD. No evidence of flow -limiting coronary disease within the LAD. Circumflex vessel demonstrates patent stents in the proximal segment. There is some ostial narrowing of small first obtuse marginal branch unchanged compared to previous study. Second obtuse marginal branch is patent. There is evidence of competitive flow from the vein graft. Right coronary artery is a dominant vessel. It bifurcates into PDA and PLV branch. Patent stents to the right coronary artery with no evidence of flow-limiting coronary disease. Saphenous vein graft to obtuse marginal branch is patent. No evidence of stenosis or narrowing at th e anastomosis. BELCHER to LAD widely patent with good anastomosis with no evidence of flow-limiting disease. HEMODYNAMICS: LVEDP 17 mmHg. CONCLUSIONS: 1. No flow-limiting coronary disease. 2. Patent stent to the left anterior descending, circumflex, and right coronary artery. 3. Patent saphenous vein graft to obtuse marginal branch. 4. Patent left internal mammary artery to left anterior descending. 5. Known history of occluded saphenous vein graft to right coronary artery on previous study. Attem pts to cannulate were not made. PLAN: 1. Patient will recover in CVC and be discharged later this afternoon. 2. Will arrange for consultation with EP for plan for [facility] symptoms of shortness of breath and dyspnea with decline in EF with no evidence of flow-limitin g coronary disease. /[id number]/MODL
--- NOTE | 2018-11-08 13:30 | CPEKG ---
Test Reason : OPEN Blood Pressure : / mmHG Vent. Rate : 076 BPM Atrial Rate : 076 BPM P-R Int : 188 ms QRS Dur : 111 ms QT Int : 393 ms P-R-T Axes : 039 -36 065 degrees QTc Int : 442 ms Sinus rhythm Probable left atrial enlargement Inferior infarct, old Confirmed by Rudi Sanabria ([id number]) on 11/08/2018 1:29:41 PM Referred By: Tyrell Marcos Confirmed By:Rudi Sanabria
== END 2018-11-03 16:34 | disposition home or self-care (01) ==
LOC: FCATH 07:25
PROVIDERS: ATTEND Internal Medicine Cardiovascular Disease
PROC: 4A023N7 Measurement of Cardiac Sampling and Pressure, Left Heart, Percutaneous Approach (ICD-10-PCS; principal; 2018-11-03)
PROC: B2111ZZ Fluoroscopy of Multiple Coronary Arteries using Low Osmolar Contrast (ICD-10-PCS; principal; 2018-11-03)
PROC: B21F1ZZ Fluoroscopy of Other Bypass Graft using Low Osmolar Contrast (ICD-10-PCS; principal; 2018-11-03)
PROC: B2181ZZ Fluoroscopy of Left Internal Mammary Bypass Graft using Low Osmolar Contrast (ICD-10-PCS; principal; 2018-11-03)
PROC: B2151ZZ Fluoroscopy of Left Heart using Low Osmolar Contrast (ICD-10-PCS; principal; 2018-11-03)
DX: R06.02 Shortness of breath (principal); I25.5 Ischemic cardiomyopathy; I25.10 Atherosclerotic heart disease of native coronary artery without angina pectoris; G47.33 Obstructive sleep apnea (adult) (pediatric); Z95.810 Presence of automatic (implantable) cardiac defibrillator; I10 Essential (primary) hypertension; E78.5 Hyperlipidemia, unspecified; E11.9 Type 2 diabetes mellitus without complications; Z95.1 Presence of aortocoronary bypass graft
CPT/HCPCS: C1760; J1644; J2250; J3010